=== PATIENT | female | born 1990 | race Caucasian/White ===

== ENCOUNTER 2018-05-02 05:59 | Emergency (ER) | payer BC, OTHER ==
[2018-05-02 06:09] VITALS: RESP 18; TEMP 98.3
[2018-05-02] MEDS ORDERED: DICLOXACILLIN 250 MG CAPSULE PO STA (06:48)
--- NOTE | 2018-05-02 06:50 | ED ---
General Adult HPI - General Chief complaint: Recheck/Abnormal Lab/Rx Stated complaint: Breast Pain Time Seen by Provider: 05/02/18 06:35 Source: patient Mode of arrival: ambulatory Limitations: no limitations - History of Present Illness Initial comments: This patient is 27-year-old woman who presents with complaint of right breast swelling, pain, and tenderness. She states that she had been breast-feeding and stopped just prior to the development of this. The patient also has had some associated fever and chills and feeling like she has to flu. Onset/Timin -: days(s) Quality: aching Consistency: constant Improves with: none Worsens with: none Associated Symptoms: fever/chills Treatments Prior to Arrival: none - Related Data Home Medications Medication Instructions Recorded Confirmed Vit No.124/Iron/Folic 1 each PO DAILY 09/21/14 09/21/14 [ Vitamin Tablet] Previous Rx's Medication Instructions Recorded Acetaminophen-Codeine 300-30mg 1 each PO Q4HR PRN #30 tab 09/22/14 [Tylenol w/codeine #3] Ibuprofen [Motrin] 600 mg PO Q6HR PRN #60 tab 09/22/14 Dicloxacillin [Dynapen] 500 mg PO Q6H #28 capsule 05/02/18 Allergies Allergy/AdvReac Type Severity Reaction Status Date / Time No Known Allergies Allergy Verified 05/02/18 06:09 Review of Systems ROS Statement: Those systems with pertinent positive or pertinent negative responses have been documented in the HPI. ROS Other: All systems not noted in ROS Statement are negative. Constitutional: Reports: fever, chills Respiratory: Denies: cough, dyspnea Cardiovascular: Denies: chest pain, palpitations Gastrointestinal: Denies: abdominal pain, nausea, vomiting, diarrhea Genitourinary: Denies: dysuria, frequency Musculoskeletal: Denies: back pain Skin: Denies: rash Neurological: Denies: headache Past Medical History Past Medical History: No Reported History History of Any Multi-Drug Resistant Organisms: None Reported Additional Past Surgical History / Comment(s): D&C Past Anesthesia/Blood Transfusion Reactions: No Reported Reaction Past Psychological History: No Psychological Hx Reported Smoking Status: Current every day smoker Past Alcohol Use History: None Reported Past Drug Use History: None Reported - Past Family History Mother Additional Family Medical History / Comment(s): mother has ms General Exam Limitations: no limitations General appearance: alert, in no apparent distress Head exam: Present: atraumatic, normocephalic Eye exam: Present: normal appearance. Absent: scleral icterus, conjunctival injection ENT exam: Present: normal oropharynx Respiratory exam: Present: normal lung sounds bilaterally, other (Examination of the right breast reveals that there is proximally 2 cm diameter area of erythema and warmth as well as some swelling this is located in the right upper quadrant. There is no breast discharge. No exam findings of abscess.). Absent : respiratory distress, wheezes, rales, rhonchi, stridor Cardiovascular Exam: Present: regular rate, normal rhythm, normal heart sounds. Absent: systolic murmur, diastolic murmur, rubs, gallop GI/Abdominal exam: Present: soft. Absent: distended, tenderness, guarding, rebound, rigid, mass Back exam: Present: normal inspection. Absent: CVA tenderness (R), CVA tenderness (L) Neurological exam: Present: alert Skin exam: Present: warm, dry, intact, normal color. Absent: rash Course Vital Signs 05/02/18 06:05 Temperature 98.3 F Pulse Rate 85 Respiratory 18 Rate Blood Pressure 129/89 O2 Sat by Pulse 100 Oximetry Disposition Clinical Impression: Mastitis Disposition: HOME SELF-CARE Condition: Good Instructions: Mastitis (ED) Prescriptions: Dicloxacillin [Dynapen] 500 mg PO Q6H #28 capsule Is patient prescribed a controlled substance at d/c from ED?: No Referrals: Josefina Bellamy MD [STAFF PHYSICIAN] - 1-2 days Re Cortez MD [STAFF PHYSICIAN] - 1-2 days
[2018-05-02 07:25] VITALS: BP 120/84; PULSE 80
== END 2018-05-02 07:25 | disposition home or self-care (01) ==
LOC: EC 05:59
DX: N61.0 Mastitis without abscess (principal); F17.200 Nicotine dependence, unspecified, uncomplicated
CPT/HCPCS: 99283

== ENCOUNTER → 2019-08-02 | Outpatient (CLI) | payer OTHER ==
--- NOTE | 2019-08-02 22:18 | US ---
EXAMINATION TYPE: Transabdominal DATE OF EXAM: 08/02/2019 7:13 PM COMPARISON: US 2013 CLINICAL HISTORY: Z36 confrim dates. Confirm dates. Unknown LMP. . EXAM PERFORMED: Transvaginal (TV) and Transabdominal (TA) EXAM MEASUREMENTS: GESTATIONAL AGE / DATING Physician Established: Not yet established Dates by LMP: Unknown Dates by First Scan: This is first scan Dates by Current Scan for: (6 weeks/5 days) EDC: 03/22/2020 MATERNAL ANATOMY Uterus: 12.7 x 7.3 x 5.9 cm. Anteverted. Fluid-appearing anechoic area in cervix: 1.3 x 0.6 x 0.2 cm. Hypoechoic area in cervix: 0.5 x 0.5 x 0.3 cm. Right Ovary: 4.0 x 2.7 x 2.9 cm. Anechoic area seen: 1.1 x 1.3 x 1.1 cm. Left Ovary: 5.0 x 2.8 x 2.4 cm. Area of mixed echogenicity and peripheral vascularity seen measurin.3 x 1.8 x 1.8 cm. Seen transabdominally only. Post CDS / Adnexa: Appear wnl Presence of free fluid: None seen Presence of corpus luteal cyst: Area of mixed echogenicity and peripheral vascularity seen left ovary as mentioned above measurin.3 x 1.8 x 1.8 cm. Presence of subchorionic bleed: Hypoechoic area seen superior to the gestational sac: 0.9 x 2.8 x 1.4 cm. GESTATION / SURVEY CRL: 0.75 cm. (6 weeks/5 days) Yolk Sac (normal less than 6mm): 2.1 mm. Heart Rate: 112 bpm, a second measurement at 114 bpm. Rhythm: Slightly low heart rate? IUP: Viable IUP Date of LMP: Unknown Beta HcG (if available): Unknown IMPRESSION: The ultrasound gestational age is 6 weeks and 5 days. There is mild bradycardia. Tiny amount of fluid in the cervical canal. Cervix is essentially closed.
== END | disposition home or self-care (01) ==
LOC: RADUSMAIN 17:22
PROVIDERS: ATTEND Obstetrics & Gynecology
DX: Z36.89 Encounter for other specified antenatal screening (principal); Z3A.01 Less than 8 weeks gestation of pregnancy; R00.1 Bradycardia, unspecified
CPT/HCPCS: 76801; 76817

== ENCOUNTER 2019-12-27 16:43 | Outpatient (CLI) | payer OTHER ==
[2019-12-27 17:33] VITALS: BP 140/70; PULSE 97; RESP 18; TEMP 98
--- NOTE | 2019-12-28 07:38 | P.MSEPDOC ---
Presenting Problems - Arrival Data Date of Arrival on Unit: 12/27/19 Time of Arrival on Unit: 16:43 Mode of Transport: Ambulatory - Complaint OB-Reason for Admission/Chief Complaint: Decreased Movement Comment: pt states she hasnt felt any movement for the last 3 days Medical History - Information : 4 Para: 2 Term: 2 : 0 Abortions: Spontaneous or Elective: 1 Number of Living Children: 2 - Gestational Age Gestational Age by EVELYN (wks/days): 27 Weeks and 5 Days - History Complications: No Care Review of Systems - Review of Systems Constitutional: No problems Breast: No problems ENT: No problems Cardiovascular: No problems Respiratory: No problems Gastrointestinal: No problems Genitourinary: No problems Musculoskeletal: No problems Neurological: No problems Skin: No problems Vital Signs - Temperature Temperature: 98.0 F Temperature Source: Temporal Artery Scan - Pulse Right Brachial Pulse Rate: 97 Pulse Assessment Method: Automatic Cuff - Respirations Respiratory Rate: 18 Oxygen Delivery Method: Room Air - Blood Pressure Right Arm Blood Pressure: 140/70 Blood Pressure Mean: 93 Blood Pressure Source: Automatic Cuff Medical Screen Scoring (Pre) - Cervical Exam Dilation: Exam Deferred Effacement: Exam Deferred Membranes: Intact - Uterine Contractions Frequency: N/A Duration: N/A Intensity: N/A - Maternal Vital Signs Maternal Temperature: N/A Maternal Blood Pressure: N/A Signs of Preeclampsia: N/A Maternal Respirations: N/A - Maternal Trauma Maternal Trauma: N/A - Assessment - Baby A Heart Rate - NICHD Category: Category I (Normal) = 0 Position: N/A Station: N/A - Total Score - Baby A Total Score - Baby A: 0 - Total Score - Baby B Total Score - Baby B: 0 - Total Score - Baby C Total Score - Baby C: 0 - Level of Risk - Baby A Level of Risk - Baby A: Low (0-5) - Level of Risk - Baby B Level of Risk - Baby B: Low (0-5) - Level of Risk - Baby C Level of Risk - Baby C: Low (0-5) Physician Notification (Pre) - Physician Notified Physician Notified Date: 12/27/19 Physician Notified Time: 17:12 New Order Received: Yes - Notification Comment Comment: Dr. Quiñonez given report on pt, cat 1 heart tones, no contractions, pt now feeling movement, reviewed kick counts and movement and when to follow up with OB if decreased movement, pt has appt with Dr. Andrew tomorrow Disposition - Disposition OB Disposition: Triage, Discharge to home, Written follow up instructions reviewed Discharge Date: 12/27/19 Discharge Time: 17:25 I agree with the RN Medical Screening Exam: Yes Risk & Benefit of care provided described in d/c instruction: Yes Diagnosis: DECREASED MOVEMENTS, SECOND TRIMESTER, FETUS 1
== END 2019-12-27 17:25 | disposition home or self-care (01) ==
LOC: FBPOP 16:43
PROVIDERS: ATTEND Obstetrics & Gynecology
DX: O36.8121 Decreased fetal movements, second trimester, fetus 1 (principal); Z3A.27 27 weeks gestation of pregnancy
CPT/HCPCS: 99213

== ENCOUNTER 2020-03-23 05:58 | Inpatient (IN) | payer OTHER ==
[2020-03-23] MEDS ORDERED: TERBUTALINE 1 MG/ML VIAL SQ PRN (06:20)
[2020-03-23] MEDS ORDERED: CARBOPROST TROMETHAMINE 250 MCG/ML 1 ML AMP IM PRN (06:20)
[2020-03-23] MEDS ORDERED: LIDOCAINE 0.5% (PF) 5 MG/ML (50 ML SDV) SQ PRN (06:20)
[2020-03-23] MEDS ORDERED: AMPICILLIN 2,000 MG in SODIUM CHLORIDE 0.9% 100 ML IVPB STA (06:20)
[2020-03-23] MEDS ORDERED: METHYLERGONOVINE 0.2 MG/ML 1 ML AMP IM PRN (06:20)
[2020-03-23] MEDS ORDERED: OXYTOCIN 10 UNIT/ML 1 ML VIAL IM PRN (06:20)
[2020-03-23] MEDS ORDERED: OXYTOCIN 30 UNITS/500 ML NS 30 UNIT in SALINE 1 500ML.BAG IV SCH (06:30)
[2020-03-23] MEDS: LACTATED RINGERS 1,000 ML IV SCH ×2 (06:46→14:53)
[2020-03-23] MEDS: AMPICILLIN 1,000 MG in SODIUM CHLORIDE 0.9% 50 ML IVPB SCH ×2 (10:57→14:50)
[2020-03-23 12:11] LABS: Basophils % (A) 0 %; Eosinophils # (A) 0.1 k/uL (0-0.7); Eosinophils % (A) 1 %; HCT 36.4 % (34.0-46.0); HGB 12.4 gm/dL (11.4-16.0); Lymphocytes % (A) 16 %; MCH 34.3 pg (25.0-35.0); MCV 100.8 fL (80.0-100.0); Mean Platelet Volume 7.3; Monocytes # (A) 0.5 k/uL (0-1.0); Monocytes % (A) 4 %; Neutrophils # (A) 9.8 k/uL (1.3-7.7); Neutrophils % (A) 78 %; Platelet Count 241 k/uL (150-450); RBC 3.61 m/uL (3.80-5.40); RDW 12.5 % (11.5-15.5); WBC 12.6 k/uL (3.8-10.6)
[2020-03-23] MEDS ORDERED: fentaNYL (PF) 50 MCG/ML 5 ML AMP ONE (13:24)
[2020-03-23] MEDS ORDERED: SODIUM CHLORIDE 0.9% 100 ML BAG ONE (13:24)
[2020-03-23] MEDS ORDERED: ROPIVACAINE 5MG/ML 20ML VIAL ONE (13:24)
--- NOTE | 2020-03-23 18:10 | P.HPOB ---
History of Present Illness H&P Date: 03/23/20 Chief Complaint: Induction of labor 29-year-old presents at 40 weeks and 1 day for induction of labor. Her cervix is 1 cm dilated, 70% effaced, -2 station. She is colleen every few minutes. heart tones are 135 with moderate variability and reactive. Review of Systems All systems: negative Constitutional: Denies chills, Denies fever Eyes: denies blurred vision, denies pain Ears, nose, mouth and throat: Denies headache, Denies sore throat Cardiovascular: Denies chest pain, Denies shortness of breath Respiratory: Denies cough Gastrointestinal: Denies abdominal pain, Denies diarrhea, Denies nausea, Denies vomiting Genitourinary: Denies dysuria, Denies hematuria Musculoskeletal: Denies myalgias Integumentary: Denies pruritus, Denies rash Neurological: Denies numbness, Denies weakness Psychiatric: Denies anxiety, Denies depression Endocrine: Denies fatigue, Denies weight change Past Medical History Past Medical History: No Reported History Additional Past Medical History / Comment(s): Obstetric history: She has had 2 previous vaginal deliveries and 1 miscarriage. This her fourth . She's had care with me. Blood type is O+, and was negative, rubella immune, hepatitis B negative, GBS positive, HIV negative, RPR nonreactive. History of Any Multi-Drug Resistant Organisms: None Reported Additional Past Surgical History / Comment(s): D&C Past Anesthesia/Blood Transfusion Reactions: No Reported Reaction Past Psychological History: No Psychological Hx Reported Smoking Status: Current every day smoker Past Alcohol Use History: None Reported Past Drug Use History: None Reported - Past Family History Mother Additional Family Medical History / Comment(s): mother has ms Medications and Allergies Home Medications Medication Instructions Recorded Confirmed Type Vit No.124/Iron/Folic 1 each PO DAILY 09/21/14 03/23/20 History [ Vitamin Tablet] Allergies Allergy/AdvReac Type Severity Reaction Status Date / Time No Known Allergies Allergy Verified 03/23/20 06:19 Exam Osteopathic Statement: *. No significant issues noted on an osteopathic structural exam other than those noted in the History and Physical/Consult. Vital Signs Temp Pulse Resp BP Pulse Ox 03/23/20 06:18 97.0 F L 94 16 127/74 98 Intake and Output 03/23/20 03/23/20 03/23/20 06:59 14:59 22:59 Other: Weight 90.718 kg Heart: Regular rate and rhythm Lungs: Clear to auscultation bilaterally Abdomen: Soft, nontender Extremities: Negative Homans sign Results Result Diagrams: 03/23/20 11:34 Abnormal Lab Results - Last 24 Hours (Table) 03/23/20 Range/Units 11:34 WBC 12.6 H (3.8-10.6) k/uL RBC 3.61 L (3.80-5.40) m/uL MCV 100.8 H (80.0-100.0) fL Neutrophils # 9.8 H (1.3-7.7) k/uL Assessment and Plan (1) Normal labor Current Visit: Yes Status: Acute Code(s): O80 - ENCOUNTER FOR FULL-TERM UNCOMPLICATED DELIVERY; Z37.9 - OUTCOME OF DELIVERY, UNSPECIFIED SNOMED Cod e(s): 10912557 Plan: 1. Induction of labor with amniotomy and Pitocin 2. Anticipate normal vaginal delivery
--- NOTE | 2020-03-23 18:12 | P.PROBDLV ---
Vaginal Delivery Note - . Vaginal Delivery Note: 29-year-old presents at 40 weeks and 1 day for induction of labor. Her cervix is 1 cm dilated, 70% effaced, -2 station. She is colleen every few minutes. heart tones are 135 with moderate variability and reactive. Pitocin was started. Amniotomy performed at 6:51 AM and clear fluid noted. The heart tones remained category 1. By lunchtime she was 3 cm dilated, 70% effaced, and -2 station. She is colleen every 2 minutes. Soon after this she did get an epidural and was very comfortable. Her cervix was completely dilated at 1741. She pushed, delivered a viable female over intact perineum under epidural anesthesia at 1749. Head delivered OA, anterior shoulder delivered gentle downward guidance followed by posterior shoulder and rest of body. Nose and mouth bulb suctioned, cord clamped cut, placed mother's abdomen. Apgars 9, 10, weight 7 lbs. 10 oz. Placenta delivered spontaneously, intact with three-vessel cord at 1753. Vagina, cervix, perineum inspected. A left labial laceration was repaired with 3-0 Vicryl. The right labial laceration was repaired with 3-0 Vicryl. Estimated blood loss 200 mL. mother and baby in stable condition.
[2020-03-23] MEDS ORDERED: diphenhydrAMINE 50 MG CAP PO PRN (18:13)
[2020-03-23] MEDS ORDERED: LANOLIN CREAM 5 GM TUBE TOPICAL PRN (18:13)
[2020-03-23] MEDS ORDERED: diphenhydrAMINE 25 MG CAP PO PRN (18:13)
[2020-03-23] MEDS ORDERED: ZOLPIDEM 5 MG TAB PO PRN (18:13)
[2020-03-23] MEDS ORDERED: BENZOCAINE/MENTHOL SPRAY 1 GM/SPRAY AEROSOL TOPICAL PRN (18:13)
[2020-03-23] MEDS ORDERED: diphenhydrAMINE 50 MG/ML 1 ML VIAL IVP PRN ×2 (18:13)
[2020-03-23] MEDS ORDERED: SIMETHICONE 80 MG CHEWABLE PO PRN (18:13)
[2020-03-23] MEDS ORDERED: HYDROCORTISONE 2.5% RECTAL CREAM 30 GM TUBE RECTAL PRN (18:13)
[2020-03-23] MEDS ORDERED: OXYTOCIN 20 UNITS/1000 ML NS 1,000 ML IV SCH (18:15)
[2020-03-23] MEDS: IBUPROFEN 600 MG TAB PO PRN (20:32)
[2020-03-23] MEDS: SENNOSIDES-DOCUSATE SODIUM 1 EACH TAB PO SCH (20:32)
[2020-03-24] MEDS: ACETAMINOPHEN TAB 325 MG TAB PO PRN ×2 (01:46→07:40)
[2020-03-24] MEDS: IBUPROFEN 600 MG TAB PO PRN ×2 (04:42→14:24)
[2020-03-24 06:44] LABS: Basophils % (A) 0 %; Eosinophils # (A) 0.2 k/uL (0-0.7); Eosinophils % (A) 2 %; HCT 32.6 % (34.0-46.0); Lymphocytes # (A) 2.9 k/uL (1.0-4.8); Lymphocytes % (A) 20 %; MCH 34.3 pg (25.0-35.0); MCHC 33.7 g/dL (31.0-37.0); MCV 101.8 fL (80.0-100.0); Macrocytosis Slight; Mean Platelet Volume 7.4; Monocytes # (A) 0.7 k/uL (0-1.0); Monocytes % (A) 5 %; Neutrophils # (A) 10.5 k/uL (1.3-7.7); Neutrophils % (A) 72 %; Platelet Count 231 k/uL (150-450); WBC 14.6 k/uL (3.8-10.6)
--- NOTE | 2020-03-24 08:13 | P.DS ---
Providers Date of admission: 03/23/20 05:58 Expected date of discharge: 03/24/20 Attending physician: Fátima Andrew Primary care physician: Stated None - Discharge Diagnosis(es) (1) Normal labor Current Visit: Yes Status: Resolved (2) Vaginal delivery Current Visit: No Status: Acute Hospital Course: Patient presented for induction of labor. She underwent normal vaginal delivery. She denies nausea, vomiting, chest pain, shortness of breath or calf pain. She'll be discharged home day #1 in stable condition to follow-up with me in 6 weeks. Plan - Discharge Summary New Discharge Prescriptions: New Ibuprofen [Motrin] 600 mg PO Q6HR PRN #30 tab PRN Reason: Mild Pain Or Fever >= 100.5 No Action Vit No.124/Iron/Folic [ Vitamin Tablet] 1 each PO DAILY Discharge Medication List Vit No.124/Iron/Folic [ Vitamin Tablet] 1 each PO DAILY 09/21/14 [History] Ibuprofen [Motrin] 600 mg PO Q6HR PRN #30 tab 03/24/20 [Rx] Follow up Appointment(s)/Referral(s): Fátima Andrew DO [Doctor of Osteopathic Medicine] - 6 Weeks Discharge Disposition: HOME SELF-CARE
[2020-03-24] MEDS: SENNOSIDES-DOCUSATE SODIUM 1 EACH TAB PO SCH (08:19)
[2020-03-24 12:14] VITALS: TEMP 97.9
[2020-03-24 16:01] VITALS: BP 114/72; PULSE 63; RESP 16
== END 2020-03-24 18:41 | disposition home or self-care (01) | DRG 807 ==
LOC: 4FBP 05:58
PROVIDERS: ADMIT Obstetrics & Gynecology; ATTEND Obstetrics & Gynecology
PROC: 00HU33Z Insertion of Infusion Device into Spinal Canal, Percutaneous Approach (ICD-10-PCS; principal; 2020-03-23)
PROC: 3E0R3NZ Introduction of Analgesics, Hypnotics, Sedatives into Spinal Canal, Percutaneous Approach (ICD-10-PCS; principal; 2020-03-23)
PROC: 10907ZC Drainage of Amniotic Fluid, Therapeutic from Products of Conception, Via Natural or Artificial Opening (ICD-10-PCS; principal; 2020-03-23)
PROC: 10E0XZZ Delivery of Products of Conception, External Approach (ICD-10-PCS; principal; 2020-03-23)
PROC: 0HQ9XZZ Repair Perineum Skin, External Approach (ICD-10-PCS; principal; 2020-03-23)
DX: O70.0 First degree perineal laceration during delivery (principal); Z37.0 Single live birth; O99.334 Smoking (tobacco) complicating childbirth; F17.210 Nicotine dependence, cigarettes, uncomplicated; Z3A.40 40 weeks gestation of pregnancy; Z82.0 Family history of epilepsy and other diseases of the nervous system
CPT/HCPCS: 85025; 86850; 86900; 86901